=== PATIENT | male | born 1995 | race Caucasian/White ===

== ENCOUNTER 2017-11-24 04:37 | Emergency (ER) | payer BC ==
[2017-11-24 04:42] VITALS: RESP 16
[2017-11-24] MEDS ORDERED: NS 1,000 ML IV ONE (04:54)
[2017-11-24] MEDS ORDERED: ONDANSETRON 4 MG/2 ML VIAL IVP ONE (04:54)
[2017-11-24] MEDS ORDERED: FAMOTIDINE 20 MG/NACL 50 ML IV ONE (05:00)
--- NOTE | 2017-11-24 05:09 | EDPHY ---
H & P Stated Complaint: N/V Time Seen by Provider: 11/24/17 04:50 HPI/ROS: HPI The patient presents with nausea and vomiting that awoke him from sleep at about 3:00 a.m. This morning. He has had ongoing symptoms which have been constant and moderate in severity. His vomit was initially clear and then became somewhat dark. He did eat some jerk [place] tofu before going to bed. He denies any abdominal pain though says his esophagus feels like it is burning. He says he has been drinking about 3 days per week heavily lately. He last drink 2 days ago. He also is maintaining and gluten free diet which is new for him. REVIEW OF SYSTEMS Constitutional: No fever, no chills. Eyes: No discharge. ENT: No sore throat. Cardiovascular: No chest pain, no palpitations. Respiratory: No cough, no shortness of breath. Gastrointestinal: See HPI Genitourinary: No hematuria. Musculoskeletal: No back pain. Skin: No rashes. Neurological: No headache. PMHx: Healthy Soc Hx: College student, binge alcohol use, tobacco use occasionally PHYSICAL General Appearance: Alert, no distress Eyes: Pupils equal and round no pallor or injection ENT, Mouth: Mucous membranes moist Respiratory: There are no retractions, lungs are clear to auscultation Cardiovascular: Regular rate and rhythm Gastrointestinal: Abdomen is soft and non-tender, no masses, bowel sounds normal Neurological: A&O, moves all extremities Skin: Warm and dry, no rashes Musculoskeletal: Neck is supple non tender Extremities: symmetrical, full range of motion Psychiatric: Patient is oriented X 3, there is no agitation Source: Patient Exam Limitations: No limitations - Personal History Current Tetanus/Diphtheria Vaccine: Unsure Current Tetanus Diphtheria and Acellular Pertussis (TDAP): Unsure - Medical/Surgical History Hx Asthma: No Hx Chronic Respiratory Disease: No Hx Diabetes: No Hx Cardiac Disease: No Hx Renal Disease: No Hx Cirrhosis: No Hx Alcoholism: No Hx HIV/AIDS: No Hx Splenectomy or Spleen Trauma: No - Social History Smoking Status: Current some day smoker Constitutional: Initial Vital Signs Temperature (C) 36.4 C 11/24/17 04:41 Heart Rate 92 11/24/17 04:41 Respiratory Rate 16 11/24/17 04:41 Blood Pressure 107/67 11/24/17 04:41 O2 Sat (%) 97 11/24/17 04:41 O2 Delivery Mode Room Air Allergies/Adverse Reactions: No Known Allergies Allergy (Unverified 11/24/17 04:42) Medical Decision Making Differential Diagnosis: 22-year-old male who presents from home with nausea and vomiting for the last several hours which awoke him from sleep. His vomit initially clear and now dark. He did not have any abdominal pain or tenderness on exam. Differential diagnosis includes Diana-Foreman tear, alcoholic gastritis, gastroenteritis. In the emergency department, patient received IV fluids, Zofran, famotidine with improvement in his symptoms. Labs were checked and were all unremarkable. He was able to tolerate fluids without difficulty by mouth. He will be discharged home. I have instructed him to avoid drinking alcohol and maintain a bland diet. I have encouraged him to take Pepcid as needed. I have given him the follow-up information for the linux systems administrator personal banking assistant if he has ongoing symptoms. He is in agreement with this plan. - Data Points Laboratory Results: Laboratory Results 11/24/17 04:50 11/24/17 04:50 11/24/17 11/24/17 04:50 04:50 WBC 10.27 10^3/uL H 10^3/uL (3.80-9.50) RBC 5.19 10^6/uL 10^6/uL (4.40-6.38) Hgb 16.3 g/dL g/dL (13.7-17.5) Hct 47.9 % % (40.0-51.0) MCV 92.3 fL fL (81.5-99.8) MCH 31.4 pg pg (27.9-34.1) MCHC 34.0 g/dL g/dL (32.4-36.7) RDW 12.1 % % (11.5-15.2) Plt Count 246 10^3/uL 10^3/uL (150-400) MPV 10.4 fL fL (8.7-11.7) Neut % (Auto) 81.4 % H % (39.3-74.2) Lymph % (Auto) 10.5 % L % (15.0-45.0) [place] % (Auto) 5.8 % % (4.5-13.0) Eos % (Auto) 1.4 % % (0.6-7.6) Baso % (Auto) 0.2 % L % (0.3-1.7) Nucleat RBC Rel Count 0.0 % % (0.0-0.2) Absolute Neuts (auto) 8.36 10^3/uL H 10^3/uL (1.70-6.50) Absolute Lymphs (auto) 1.08 10^3/uL 10^3/uL (1.00-3.00) Absolute Monos (auto) 0.60 10^3/uL 10^3/uL (0.30-0.80) Absolute Eos (auto) 0.14 10^3/uL 10^3/uL (0.03-0.40) Absolute Basos (auto) 0.02 10^3/uL 10^3/uL (0.02-0.10) Absolute Nucleated RBC 0.00 10^3/uL 10^3/uL (0-0.01) Immature Gran % 0.7 % % (0.0-1.1) Immature Gran # 0.07 10^3/uL 10^3/uL (0.00-0.10) Sodium 145 mEq/L mEq/L (135-145) Potassium 4.2 mEq/L mEq/L (3.5-5.2) Chloride 105 mEq/L mEq/L (97-110) Carbon Dioxide 25 mEq/l mEq/l (22-31) Anion Gap 15 mEq/L mEq/L (8-16) BUN 14 mg/dL mg/dL (7-23) Creatinine 0.9 mg/dL mg/dL (0.7-1.3) Estimated GFR > 60 Glucose 101 mg/dL H mg/dL (70-100) Calcium 9.6 mg/dL mg/dL (8.5-10.4) Total Bilirubin 1.5 mg/dL H mg/dL (0.1-1.4) AST 35 IU/L IU/L (17-59) ALT 37 IU/L IU/L (21-72) Alkaline Phosphatase 82 IU/L IU/L (38-126) Total Protein 8.2 g/dL g/dL (6.3-8.2) Albumin 5.0 g/dL g/dL (3.5-5.0) Lipase 58 IU/L IU/L (23-300) Medications Given: Discontinued Medications Sodium Chloride (Ns) 1,000 mls @ 0 mls/hr IV ONCE ONE PRN Reason: Wide Open Stop: 11/24/17 04:55 Last Admin: 11/24/17 04:58 Dose: 1,000 mls Famotidine/Sodium Chloride (Pepcid 20 Mg (Premix)) 50 mls @ 200 mls/hr IV EDNOW ONE Stop: 11/24/17 05:14 Last Admin: 11/24/17 05:06 Dose: 50 mls Ondansetron HCl (Zofran) 4 mg IVP EDNOW ONE Stop: 11/24/17 04:55 Last Admin: 11/24/17 04:58 Dose: 4 mg Ondansetron HCl (Zofran Odt 4 Mg Prepack#2) 1 btl TAKEHOME EDNOW ONE Stop: 11/24/17 06:20 Last Admin: 11/24/17 06:24 Dose: 1 btl Departure - Departure Disposition: Home, Routine, Self-Care Clinical Impression: Nausea and vomiting Qualifiers: Vomiting type: unspecified Vomiting Intractability: non-intractable Qualified Code(s): R11.2 - Nausea with vomiting, unspecified Gastritis Qualifiers: Gastritis type: unspecified gastritis Chronicity: acute Gastritis bleeding: with bleeding Qualified Code(s): K29.01 - Acute gastritis with bleeding Condition: Good Instructions: Ondansetron (By mouth), Gastritis (ED), Acute Nausea and Vomiting (ED) Additional Instructions: I recommend that you avoid drinking alcohol. I feel this is causing some inflammation in your stomach. If you continue to have nausea, vomiting, any abdominal pain, I have referred you to the linux systems administrator in you can be seen for a follow-up appointment. In the meantime, if you continue to have symptoms you can take Pepcid 20 mg once or twice daily. Referrals: [facility] Stubbs,. [Clinic] - As per Instructions Isael Cormier MD [Medical Doctor] - As per Instructions
[2017-11-24 05:16] LABS: PLATELET COUNT 246 10^3/uL (150-400)
[2017-11-24] MEDS ORDERED: ONDANSETRON 4MG PREPACK#2 BTL TAKEHOME ONE (06:19)
[2017-11-24 06:30] VITALS: BP 121/63; PULSE 87; TEMP 98.2; O2SAT 94
== END 2017-11-24 06:28 | disposition home or self-care (01) ==
DX: K29.01 Acute gastritis with bleeding (principal); F17.200 Nicotine dependence, unspecified, uncomplicated
CPT/HCPCS: 96365; J2405